=== PATIENT | male | born 1985 | race Caucasian/White ===

== ENCOUNTER 2021-03-02 23:23 | Inpatient (IN) | payer OTHER ==
[~2021-03-02] VITALS: Ht 172.7 cm; Wt 89.8 kg
--- NOTE | 2021-03-02 23:58 | NUR ---
PACIENTE MASCULINO, ALERTA Y ORIENTADO. REFIERE DOLOR EN ESCROTO DEL LADO GARRISON QUE SE IRRADIA HACIA ESPALDA BAJA AREA IZQUIERDA, HACE 4 GARZA. NO DOLOR AL ORINAR. PACIENTE REFIERE CORDON TENIDO KIDNEY STONES, ANTERIORMENTE. SE MIDE S/V. SE UBICA EN AREA DE OBSERVACION.
--- NOTE | 2021-03-03 08:18 | NUR ---
SE RECIBE PTE ALERTA Y ORIENTADO X 3 ESFERAS EN CAMA CON BARANDAS ELEVADAS POR SEGURIDAD. PRESENTANDO BUEN PATRON RESPIRATORIO. RECIBIENDO IV'S 0.9NSS BAJANDO A 120ML/HR AREA DE VENOPUNCION EN BRAZO GARRISON AREA GRACIE DE EDEMA Y ERITEMA. SE MANTIENE EN OBSERVACION POR CAMBIOS EN CONDICION MEDICA. PENDIENTE CONSULTA CON RUSSELL.
== END 2021-03-07 08:37 | disposition home or self-care (01) | DRG 712 ==
LOC: ER 23:23 → MEDI 03-03 16:52
PROVIDERS: Urology; ADMIT Internal Medicine; ATTEND Internal Medicine
PROC: 0VS90ZZ Reposition Right Testis, Open Approach (ICD-10-PCS; 2021-03-04)
PROC: 0VBB0ZZ Excision of Left Testis, Open Approach (ICD-10-PCS; principal; 2021-03-04 15:00)
DX: N45.3 Epididymo-orchitis (principal); N45.1 Epididymitis; N50.1 Vascular disorders of male genital organs; N50.812 Left testicular pain